=== PATIENT | male | born 1995 | race Asian ===

== ENCOUNTER 2017-03-17 03:34 | Emergency (ER) | payer OTHER ==
[~2017-03-17] VITALS: Ht 175.3 cm; Wt 72.6 kg
[2017-03-17 03:34] VITALS: BP 139/79; PULSE 92; RESP 12; TEMP 98.9; O2SAT 99
--- NOTE | 2017-03-17 03:34 | NUR ---
Patient to [facility] for evaluation. Side rails up. Report given to JHONNY ZAVALA.
--- NOTE | 2017-03-17 03:38 | NUR ---
Patient AAO x4, brought in by [facility] for blood alcohol draw. Denies having any medical complaints. No acute distress noted. Calm and cooperative. Officers at bedside.
--- NOTE | 2017-03-17 03:52 | NUR ---
Written and verbal consent obtained from patient for blood alcohol, name and verified by patient. Disinfected patient's skin with povidone iodine that did not contain alcohol or other volatile organic compound. Collected the blood from the subject named by venipuncture, in the presence of Officer [id number]. Used a sterile, dry hypodermic needle and dry vacuum blood collection. The dry vacuum blood collection was supplied by the officer named above. Withdrew a specimen of blood from Left Arm of the subject named above. Inverted the blood tube several times to ensure that the preservative and anticoagulant were thoroughly mixed in the blood specimen. I initialed the blood tube label for identification. The labeled blood tube was handed directly to the Officer named above. The blood tube stopper remained in place while I had possession of the blood tube. The Officer placed tube into envelope and sealed it in my presence. Envelope initialed by myself and Officer named above. Patient tolerated well, bandage applied, and bleeding controlled.
[2017-03-17 04:00] VITALS: BP 139/79; PULSE 92; RESP 12; TEMP 98.9; O2SAT 99
--- NOTE | 2017-03-17 04:00 | NUR ---
Patient discharged into [facility] custody. Patient in stable condition. ID arm band removed. Pain Scale 0/10. Opportunity for questions provided and answered. No acute distess noted. Ambulated out of ED in handcuffs in a calm and cooperative manner.
== END 2017-03-17 04:00 ==
LOC: SED 03:34
DX: Z02.89 Encounter for other administrative examinations (principal)